=== PATIENT | male | born 1960 | race Caucasian/White ===

== ENCOUNTER 2016-12-01 18:48 | Emergency (ER) | payer BC ==
[2016-12-01 18:58] VITALS: BP 161/114
--- NOTE | 2016-12-01 19:00 | EDM.PDOC ---
ED HPI GENERAL MEDICAL PROBLEM - General Chief Complaint: Genitourinary Problem Stated Complaint: KIDNEY STONE Time Seen by Provider: 12/01/16 19:00 Source of Information: Reports: Patient History Limitations: Reports: No Limitations - History of Present Illness INITIAL COMMENTS - FREE TEXT/NARRATIVE: 56-year-old male presents the ED with acute onset of severe left flank pain with slight radiation to the left joseph-upper abdomen. Pain came on suddenly about 4 hours ago he was out [place] [facility].. Associated nausea without vomiting associated feeling of need to void and to defecate but unable to do so. Patient gives a history of kidney stone or renal colic at least 3 times in the past . All stones were passed on his own. Last attack was about 3 years ago. He believes it too was on the left side. Her pain is 9 out of 10. Previous abdominal surgery is cholecystectomy. Onset: Today Onset Date: 12/01/16 Onset Time: 15:00 Duration: Hour(s): Location: Reports: Back (Left flank) Quality: Reports: Ache, Pressure, Same as Previous Episode, Throbbing Severity: Moderate Improves with: Reports: None Worsens with: Reports: None Context: Reports: Other (Son onset of severe left flank pain). Denies: Activity , Exercise, Lifting, Sick Contact, Trauma Associated Symptoms: Reports: Nausea/Vomiting (Nausea without vomiting), Other ( Need to defecate and void but unable to do so.) Treatments WIRE TINNER: Reports: Other (see below) (None.) left flank Pain Score (Numeric/FACES): 9 - Related Data Allergies Allergy/AdvReac Type Severity Reaction Status Date / Time simvastatin Allergy Sweating Verified 12/01/16 19:00 Home Meds: Home Meds Aspirin 324 mg PO DAILY 12/01/16 [History] Biotin 1 mg PO DAILY 12/01/16 [History] Multivitamin [Men's Multi-Vitamin] 1 each PO DAILY 12/01/16 [History] Rosuvastatin [Crestor] 10 mg PO DAILY 12/01/16 [History] Tamsulosin [Flomax] 0.4 mg PO DAILY #4 cap.er 12/01/16 [Rx] oxyCODONE HCl/Acetaminophen [Percocet 5-325 mg Tablet] 1 - 2 each PO Q4H PRN # 20 tablet 12/01/16 [Rx] Past Medical History Cardiovascular History: Reports: High Cholesterol Genitourinary History: Reports: BPH (Mild), Renal Calculus (3 in the past all of which he passed on his own.) Social & Family History - Alcohol Use Alcohol Use History: Yes - Living Situation & Occupation Living situation: Reports: Occupation: Employed ED ROS GENERAL - Review of Systems Review Of Systems: See Below Constitutional: Reports: Decreased Appetite. Denies: Fever, Chills, Malaise, Weakness, Fatigue, Weight Loss HEENT: Reports: No Symptoms Respiratory: Reports: No Symptoms Cardiovascular: Reports: No Symptoms Endocrine: Reports: No Symptoms GI/Abdominal: Reports: No Symptoms : Reports: No Symptoms Musculoskeletal: Reports: Joint Pain (Occasionally in his knees and hips and low back.) Skin: Reports: No Symptoms Neurological: Reports: No Symptoms Psychiatric: Reports: No Symptoms Hematologic/Lymphatic: Reports: No Symptoms Immunologic: Reports: No Symptoms ED EXAM, RENAL/ - Physical Exam Exam: See Below Exam Limited By: No Limitations General Appearance: Alert, Mild Distress (Very stoic fellow. Walking around the room holding onto his left flank.) Eye Exam: Bilateral Eye: Normal Inspection Head: Atraumatic, Normocephalic Neck: Normal Inspection, Supple, Non-Tender, Full Range of Motion Respiratory/Chest: No Respiratory Distress, Lungs Clear, Normal Breath Sounds, No Accessory Muscle Use Cardiovascular: Normal Peripheral Pulses, Regular Rate, Rhythm, No Edema, No Gallop, No Murmur GI/Abdominal: Normal Bowel Sounds, Non-Tender, No Organomegaly, No Abnormal Bruit, No Mass (Hypoactive bowel sounds.), Pelvis Stable, Abnormal Bowel Sounds (Male) Exam: No Hernia Back Exam: Normal Inspection, Full Range of Motion. No: CVA Tenderness (L), CVA Tenderness (R) Extremities: Normal Inspection, Normal Range of Motion, Non-Tender, Normal Capillary Refill Neurological: Alert, Oriented, CN II-XII Intact, Normal Cognition, Normal Gait Psychiatric: Normal Affect Skin Exam: Warm, Dry, Intact, Normal Color, No Rash Course - Vital Signs Last Recorded V/S: Last Vital Signs Temp 36.7 C 12/01/16 18:54 Pulse 84 12/01/16 18:54 Resp 18 12/01/16 18:54 BP 161/114 H 12/01/16 18:54 Pulse Ox 100 12/01/16 18:54 - Orders/Labs/Meds Orders: Active Orders 24 hr Category Date Time Status Abdomen Pelvis wo Cont [CT] Stat Exams 12/01/16 19:04 Taken Meds: Medications Discontinued Medications Generic Name Dose Route Start Last Admin Trade Name hSelbi PRN Reason Stop Dose Admin Hydromorphone HCl 0.5 mg 12/01/16 19:03 12/01/16 19:32 Dilaudid IVPUSH 12/01/16 19:04 0.5 mg ONETIME ONE Administration Sodium Chloride 1,000 mls @ 150 mls/hr 12/01/16 19:15 12/01/16 19:31 Normal Saline IV 150 mls/hr ASDIRECTED RYAN Administration Ketorolac Tromethamine 30 mg 12/01/16 19:15 12/01/16 19:32 Toradol IVPUSH 30 mg ONETIME RYAN Administration Metoclopramide HCl 7.5 mg 12/01/16 19:03 12/01/16 19:32 Reglan IVPUSH 12/01/16 19:04 7.5 mg ONETIME ONE Administration - Radiology Interpretation Free Text/Narrative:: 56-year-old male attends the ED with an approximate foreign half hour history of severe left flank pain. Pain came on while he was out hunting [place] this afternoon. Associated feeling of need to void but unable to do so. He does have a history of previous kidney stones. Pain is staying primarily in the left flank but is felt mildly in the left upper quadrant of the abdomen. States he gets occasional feeling of need to void but is unable to do so. Has not no cine blood injuring. Is nauseated at times but has not vomited. Plan CT of the abdomen to be performed. Ideally a urinalysis as well. Current pain as 8 or 9 out of 10. He will be given Dilaudid 0.5 mg IV with Reglan 7.5 mg IV for pain relief. - Re-Assessments/Exams Free Text/Narrative Re-Assessment/Exam: 12/01/16 20:00 CT of the abdomen pelvis performed reveals a 2 mm stone at the left UVJ. It has about 3 cortisone is to travel before it enters the urinary bladder. He will be therefore discharged home on Flomax 0.4 mg once daily for 4 days. Percocet 5/325 milligram tablets one or 2 every 4-6 hours needed for pain relief. He'll continue Motrin as needed. Of note no other stones are identified within the renal renal parenchyma to be problematic in the future. Departure - Departure Time of Disposition: 19:51 Disposition: Home, Self-Care 01 Condition: Fair Clinical Impression: Kidney stone - Discharge Information Prescriptions: oxyCODONE HCl/Acetaminophen [Percocet 5-325 mg Tablet] 1 - 2 each PO Q4H PRN # 20 tablet PRN Reason: pain relief. Tamsulosin [Flomax] 0.4 mg PO DAILY #4 cap.er Instructions: Kidney Stones, [id number] Referrals: PCP,None [Ordering Only Provider] - Forms: ED Department Discharge Additional Instructions: Evaluation in the emergency room today in regards to acute onset of severe left flank pain about 4-1/2 hours ago. Kidney stones 3 in the past. History of physical examination were once again compatible with renal colic. CT of the abdomen and pelvis per renal protocol identified a 2 mm stone approximately half an inch above the ureterovesical junction which is junction with the urinary bladder. Stone therefore has to travel about age be David the urinary bladder and you would be pain free. Treatment is to drink plenty of fluids. Pain medication Percocet 5/325 milligrams one or 2 every 4-6 hours needed for pain relief. Also Flomax 0.4 mg once daily at bedtime until stone is passed only gave you for tablets. Follow-up with your urologist if you have not past the stone in the next 2 weeks. Discontinue urine until stone is been identified to have passed. - My Orders Last 24 Hours: My Active Orders 12/01/16 19:04 Abdomen Pelvis wo Cont [CT] Stat - Assessment/Plan Last 24 Hours: My Active Orders 12/01/16 19:04 Abdomen Pelvis wo Cont [CT] Stat
[2016-12-01] MEDS ORDERED: Metoclopramide 10 MG/2 ML SDV IVPUSH ONE (19:03)
[2016-12-01] MEDS ORDERED: HYDROmorphone 0.5 MG/0.5 ML Syringe IVPUSH ONE (19:03)
[2016-12-01] MEDS ORDERED: Ketorolac 30 MG/ML SDV IVPUSH SCH (19:15)
[2016-12-01] MEDS ORDERED: Sodium Chloride 0.9% 1,000 ML IV SCH (19:15)
--- NOTE | 2016-12-03 08:58 | CT ---
CT abdomen and pelvis Technique: Multiple axial sections were obtained from above the kidneys inferiorly through the pubic symphysis. Intravenous and oral contrast was not utilized. Study has been performed as a ureteral stone protocol. Comparison: No previous study. Inflammatory change around the left kidney is seen. Left ureter is dilated. Findings caused by an obstructing approximate 2 mm stone within the distal left ureter next to the UVJ. No other abnormal calcifications are seen along the ureters. Small nonobstructing calculus is seen within both kidneys. Visualized lung bases show nothing acute. Visualized liver shows diffuse fatty infiltration. Liver shows no focal parenchymal abnormality. Adrenal glands show no nodule. Surgical clips are seen from prior cholecystectomy. Adrenal glands show no nodule. Pancreas is within normal limits. Aorta shows no aneurysmal dilatation. No retroperitoneal adenopathy or mesenteric abnormalities are seen. No pelvic mass or adenopathy is noted. Bone window settings were reviewed which show mild degenerative change with disc space narrowing and endplate osteophytes within the lower thoracic spine. Impression: 1. Two mm obstructing stone within the distal left ureter at the UVJ. Nonobstructing calculus is seen within each kidney. 2. Fatty infiltration within the liver and other incidental findings. Diagnostic code #3 Agree with preliminary report issued by [employer] ([facility] preliminary report dictated on 12/01/16, 8:55 PM Central Time)
== END 2016-12-01 20:12 | disposition home or self-care (01) ==
LOC: MERGE 18:48 → JD.ED 18:48
DX: N20.2 Calculus of kidney with calculus of ureter (principal); E78.00 Pure hypercholesterolemia, unspecified; Z79.82 Long term (current) use of aspirin; Z79.899 Other long term (current) drug therapy; Z90.49 Acquired absence of other specified parts of digestive tract; Z88.8 Allergy status to other drugs, medicaments and biological substances
CPT/HCPCS: 74176; 96361; 96374; 96375; 99284; J1170; J1885; J2765; J7040